=== PATIENT | male | born 1950 | race Caucasian/White ===

== ENCOUNTER 2023-10-17 20:24 | Observation (INO) | payer MEDICARE, SELFPAY ==
[2023-10-17] VITALS (10 sets, daily range): BP systolic 125–165; BP diastolic 80–119; PULSE 111–158; RESP 12–17; TEMP 36.4–36.6; O2SAT 93–97
--- NOTE | ~2023-10-17 | XR_ITS ---
EXAMINATION: XR chest 1V portable Exam Date/Time: 10/17/2023 20:50 CDT HISTORY: covid, afib Comparison: 07/20/2010. RESULT: Lines, tubes, and devices: None. Lungs and pleura: Mild biapical pleural scarring, otherwise clear. Cardiomediastinal silhouette: Stable. Other: No acute osseous or upper abdominal finding. IMPRESSION: No acute cardiopulmonary process. Reviewed, dictated and finalized at location K.
--- NOTE | ~2023-10-17 | CT_ITS ---
EXAMINATION: CTA chest PE protocol DATE: 10/17/2023 21:52 INDICATION: new onset afib, covid TECHNIQUE: Computed tomography angiography (CTA) of the chest was performed with 100 mL Omnipaque-350 intravenous contrast timed to evaluate the pulmonary arteries. Coronal maximum intensity projection 3D-reconstructions were created by the technologist. The dose-length product (DLP) was 293.81 mGy-cm. Automated exposure control and iterative reconstruction technique were employed. COMPARISON: X-ray chest same date. FINDINGS: Lung parenchyma and airways: Senescent change. Bibasilar scarring. Calcified granulomas. Biapical ple ural scarring. Pleura: Unremarkable. Thoracic inlet, axillae and chest wall: Unremarkable. Thoracic aorta: No significant dilation. No dissection. Mediastinum: Normal. Heart and pericardium: Normal. Coronary artery calcifications: Mild. Upper abdomen: No significant finding. Bones: No acute osseous finding. Pulmonary arteries: Study quality: Adequate. No pulmonary emboli detected. IMPRESSION: No CT evidence of acute pulmonary embolus. No acute process detected in the chest. Reviewed, dictated and finalized at location K.
--- NOTE | 2023-10-17 20:30 | ECG_ITS ---
Test Date: 2023-10-17 20:32:07 Measurements Intervals [place] Rate: 150 P: 0 MO: 0 QRS: 69 QRSD: 91 T: 51 QT: 286 QTc: 452 Interpretive Statements ATRIAL FLUTTER/TACHYCARDIA WITH RAPID VENTRICULAR RESPONSE ST DEPRESSION IN ANTROLAT/INF LEADS, CONSIDER SUBENDOCARDIAL INJURY ABNORMAL ECG No previous ECG available for comparison Electronically Signed On 10-18-2023 06:20:29 CDT by Asad Faria D.O.
--- NOTE | 2023-10-17 20:43 | ED.ARRPALP ---
HPI - Arrhythmia/Palpitations General Chief Complaint: Arrhythmia/Palpitations Stated Complaint: COVID+ NOW IN AFIB Time Seen by Provider: 10/17/23 20:32 History of Present Illness HPI narrative: This is a 73-year-old male with no pertinent past medical history aside from hyperlipidemia who presents to the emergency department in AFib with rapid ventricular response. Patient went to Urgent Care today to get a COVID test as he was flying to [place] tomorrow to visit family. He has been having flu-like symptoms for last week including nausea, vomiting, diarrhea, congestion. He has no history of atrial fibrillation. Never been on blood thinner medications and has no history of DVT or PE. Aside from the COVID diagnosis he was otherwise in his normal state of health. No medication changes. He has not any cardiac medications like beta-blockers or calcium channel blockers. No leg swelling. No long travel, recent procedures. Related Data Allergies Allergy/AdvReac Type Severity Reaction Status Date / Time No Known Allergies Allergy Unverified 07/20/10 13:44 Review of Systems Review of Systems: As reviewed above in HPI Exam Narrative: GENERAL: [Well-appearing, well-nourished, and in no acute distress.] HEAD: [Normocephalic, atraumatic.] EYES: [PERRLA and EOMI.] ENT: Nares clear, no rhinorrhea or epistaxis. Mucous membranes moist. NECK: Supple. CHEST: [Clear to auscultation. No respiratory distress.] HEART: Rapid irregular heart rate but good well-perfused extremities. No murmur heard. [Normal peripheral pulses.] ABDOMEN: [Soft, nondistended], [nontender], [No rigidity or guarding] EXTREMITIES: Normal range of motion. [No edema.] SKIN: Warm, dry, no rash. NEURO: [No focal deficits]. Alert and oriented [x3.] PSYCH: [Normal mood and affect.] Course Vital Signs Vital signs: Vital Signs Temperature 36.6 C 10/17/23 20:27 Pulse Rate 156 H 10/17/23 20:27 Respiratory Rate 16 10/17/23 20:27 Blood Pressure 158/115 H 10/17/23 20:27 Pulse Oximetry 97 10/17/23 20:27 Oxygen Delivery Room Air 10/17/23 20:27 Temperature 36.4 C 10/17/23 20:43 Pulse Rate 125 H 10/17/23 22:20 Respiratory Rate 16 10/17/23 20:43 Blood Pressure 138/103 H 10/17/23 22:20 Pulse Oximetry 96 10/17/23 20:44 Oxygen Delivery Room Air 10/17/23 20:44 MDM - Arrhythmia/Palpitations MDM Narrative Medical decision making narrative: This is a 73-year-old male presenting for atrial fibrillation with rapid ventricular response. He was recently diagnosis COVID after a week of URI symptoms. He has also been having nauseous, diarrhea in addition. Presently he is asymptomatic and does not even feel his rapid heartbeat but was sent from urgent care after this covered his rapid heart rate with in the 150s and irregular beat. No DVT or PE history. Legs are not edematous with no calf swelling. Warm extremities bilaterally with AFib on pulsation. Hemodynamically stable with a blood pressure 160/116. He is afebrile and saturating well on room air. Differential diagnosis at this time includes new onset atrial fibrillation, thrombotic process such as a pulmonary embolism, COVID 19 infection, ACS is less likely. Triage EKG confirmed atrial fibrillation, RVR with a heart rate in 150s. There appeared to be some ST depressions in the very lateral leads although this is likely rate dependent. No ST elevation NH. IV access is obtained, patient placed on continuous pulse oximetry and nuclear monitoring technician. CBC BMP troponin serially, chest x-ray and CTA with PE protocol was ordered. She was given 20 mg of Cardizem for 0.25 milligram/kilogram dose. 1 L likely Ringer bolus was given. Patient has good rate control down in the 90-100s however quickly rebounded back into rapid ventricular response. He was started on a Cardizem drip with titration parameters to keep him under 110 beats per minute. Hemodynamically remained stable. Serial troponin
[2023-10-17] MEDS: dilTIAZem HCl INJ 25 MG/5 ML VIAL 20 MG IV PUSH (20:56)
[2023-10-17] MEDS: LACTATED RINGERS 1,000 ML 999 ML IV CONT (20:58)
[2023-10-17 21:01] LABS: Basophils Percent Auto 0.6 % (0.2-1.2); Eosinophils Absolute Auto 0.1 K/mm3 (0-0.3); Eosinophils Percent Auto 1.2 % (0-4.4); Hematocrit 46.6 % (42.0-52.0); Hemoglobin 15.8 g/dL (14.0-18.0); Immature Granulocyte Absolute 0.01 K/mm3 (0.00-0.031); Immature Granulocyte Percent A 0.1 % (0-0.5); Lymphocytes Absolute Auto 2.49 K/mm3 (0.9-3.2); Lymphocytes Percent Auto 36.1 % (18.3-44.2); Mean Corpuscular HGB Conc 33.9 g/dl (32-36); Mean Corpuscular Hemoglobin 31.7 pg (26-34); Mean Corpuscular Volume 93.4 fl (80-100); Mean Platelet Volume 9.7 fl (7.4-10.4); Monocytes Absolute Auto 0.8 K/mm3 (0.1-0.6); Monocytes Percent Auto 11.2 % (2.6-8.5); Neutrophils Absolute Auto 3.5 K/mm3 (1.3-6.7); Neutrophils Percent Auto 50.8 % (45.5-73.1); Platelet Count Result 250 k/mm3 (150-375); Red Blood Count 4.99 M/mm3 (4.6-6.20); Red Cell Distribution Width 12.3 % (11.5-14.5); White Blood Count 6.9 K/mm3 (4.5-10.0)
[2023-10-17 21:15] LABS: Prothrombin Time 13.2 Seconds (11.1-14.7)
[2023-10-17 21:16] LABS: Partial Thromboplastin Time 24.9 Seconds (22.3-36.8)
[2023-10-17 21:26] LABS: Alanine Aminotransferase 50 U/L (6-50); Albumin Level 4.7 g/dL (3.5-5.1); Alkaline Phosphatase 63 U/L (38-126); Anion Gap 11 mmol/L (4-12); Aspartate Amino Transferase 49 U/L (17-59); Bilirubin,Total 1.1 mg/dL (0.2-1.3); Blood Urea Nitrogen 18 mg/dL (9-20); Calcium 9.7 mg/dL (8.4-10.2); Carbon Dioxide 29 mmol/L (22-30); Chloride 102 mmol/L (98-107); Estimated CRCL calculation 66 ml/min; Estimated Glomerular Filt Rate > 60; Glucose 93 mg/dL (65-110); Potassium 3.8 mmol/L (3.4-5.0); Sodium 142 mmol/L (137-145)
[2023-10-17 21:46] LABS: NT Pro B Type Natriuretic Pept 87 pg/mL (19.9-100); Troponin I < 0.012 ng/mL (0.000-0.034)
--- NOTE | 2023-10-17 22:07 | PC.NURSE ---
Patient states that he tested positive for COVID at before coming to ED.
[2023-10-17] MEDS: dilTIAZem 100 MG/100 ML 100 MG/100 ML BAG IV CONT (22:20)
--- NOTE | 2023-10-17 22:29 | PM.IMHP ---
H&P: HPI History of Present Illness Date/Time: 10/17/23 22:29 Chief Complaint: abnormal heart rate Narrative: this is a 73-year-old male with no significant past medical history patient presents to the emergency room due to abnormal heart rate in the 100 and 50s patient had been in to check for COVID after having several days not feeling well having cold-like symptoms generalized malaise dry heaving diarrhea and he was found to have a heart rate in the 150 in the emergency room preliminary workup was significant for EKG with atrial fibrillation. Patient was started on diltiazem drip. Patient tested positive for COVID. EXAMINATION: XR chest 1V portable Exam Date/Time: 10/17/2023 20:50 CDT HISTORY: covid, afib Comparison: 07/20/2010. RESULT: Lines, tubes, and devices: None. Lungs and pleura: Mild biapical pleural scarring, otherwise clear. Cardiomediastinal silhouette: Stable. Other: No acute osseous or upper abdominal finding. IMPRESSION: No acute cardiopulmonary process. EXAMINATION: CTA chest PE protocol DATE: 10/17/2023 21:52 INDICATION: new onset afib, covid TECHNIQUE: Computed tomography angiography (CTA) of the chest was performed with 100 mL Omnipaque-350 intravenous contrast timed to evaluate the pulmonary arteries. Coronal maximum intensity projection 3D-reconstructions were created by the technologist. The dose-length product (DLP) was 293.81 mGy-cm. Automated exposure control and iterative reconstruction technique were employed. COMPARISON: X-ray chest same date. FINDINGS: Lung parenchyma and airways: Senescent change. Bibasilar scarring. Calcified granulomas. Biapical pleural scarring. Pleura: Unremarkable. Thoracic inlet, axillae and chest wall: Unremarkable. Thoracic aorta: No significant dilation. No dissection. Mediastinum: Normal. Heart and pericardium: Normal. Coronary artery calcifications: Mild. Upper abdomen: No significant finding. Bones: No acute osseous finding. Pulmonary arteries: Study quality: Adequate. No pulmonary emboli detected. IMPRESSION: No CT evidence of acute pulmonary embolus. No acute process detected in the chest. Review of Systems Review of Systems: Cold-like symptoms, dry heaving, diarrhea, generalized malaise abnormal heart rate [facility] Family History Family History Father Acute myocardial infarction Mother Acute myocardial infarction Pacemaker Afib Social History Social History Smoking status: Never smoker Alcohol intake: former Substance use: never Substance use type: does not use Do You Feel Safe in your Home?: Yes Lack of Transportation: No Lack of Food: Never True Current Housing: I Have Housing Concerned About Future Housing: No Difficulty Paying Gas/Electric Bills: No Difficulty Paying for Meds: No Currently Unemployed: No Education: Master's Degree or Higher Difficulty w/ Childcare or Family Care: No Spiritual care concerns: No Meds Home Medications and Allergies Home Medications Medication Instructions Recorded Confirmed Type aspirin 81 mg tablet 81 mg PO DAILY 10/17/23 10/17/23 History rosuvastatin 20 mg tablet 20 mg PO DAILY 10/17/23 10/17/23 History metoprolol succinate 25 mg 25 mg PO QAM #30 tabs 10/18/23 Rx tablet,extended release 24 hr (Toprol XL) Allergies Allergy/AdvReac Type Severity Reaction Status Date / Time No Known Allergies Allergy Verified 10/17/23 23:26 Vital Signs Vital Signs - 24 hr 10/17/23 20:27 10/17/23 20:41 10/17/23 20:43 Temperature 98 F 97.6 F Pulse Rate 156 H 158 H 158 H Respiratory Rate 16 16 Blood Pressure 158/115 H 165/116 H Pulse Oximetry 97 93 Oxygen Delivery Room Air 10/17/23 20:44 10/17/23 21:58 10/17/23 22:20 Temperature Pulse Rate 111 H 125 H Respiratory
[2023-10-18] VITALS (19 sets, daily range): BP systolic 120–147; BP diastolic 69–83; PULSE 57–138; RESP 12–20; TEMP 36–36.6; O2SAT 93–100
--- NOTE | 2023-10-18 | ECHO_ITS ---
Patient Info Name: Johnny Corral Age: 73 years : 1950 Gender: Male Ht: 72 in Wt: 167 lbs BSA: 1.96 m2 HR: 69 bpm BP: 121 / 83 mmHg Heart Rhythm: Sinus Rhythm Technical Quality: Fair Exam Date: 10/18/2023 2:08 PM Exam Location: Echo Lab Patient Status: Outpatient Admit Date: 10/17/2023 Staff Ordering Physician: Chaparrita Damico MD Sustainability Coordinator: Cristy Olvera [facility] Attending Provider: Chaparrita Damico MD Referring Physician: Mookie GAGE; Exam Type: CA echo doppler color flow Study Info Indications I48.1 - Persistent atrial fibrillation Complete two-dimensional, color flow and Doppler transthoracic echocardiogram is performed. Summary 1. Complete two-dimensional, color flow and Doppler transthoracic echocardiogram is performed. 2. Left ventricular chamber dimension is normal. 3. Left ventricular systolic function is normal, estimated at 60-65%. 4. Right ventricular systolic function is normal. 5. No significant valvular disease. Left Ventricle Left ventricular chamber dimension is normal. Left ventricular systolic function is normal, estimated at 60-65%. There is no increased left ventricular wall thickness. The left ventricular diastolic function is normal. Right Ventricle Right ventricular chamber dimension is normal. Right ventricular systolic function is normal. Left Atria Left atrial chamber dimension is normal. Right Atria Right atrial chamber dimension is normal. Atrial Septum Intact interatrial septum visualized by color flow imaging. Aortic Valve The aortic valve is trileaflet. There is no aortic valve stenosis. There is no aortic valve regurgitation. Pulmonic Valve The pulmonic valve is not well visualized. There is no pulmonic regurgitation. Mitral Valve There is trace mitral valve regurgitation. The mitral valve annulus is moderately calcified. Tricuspid Valve There is trace tricuspid valve regurgitation. Pericardium/Pleural There is no pericardial effusion. Inferior Vena Cava Normal inferior vena cava with >50% collapse upon inspiration consistent with normal right atrial pressure, 3 mmHg. Aorta The aortic root size at the sinus of Valsalva is normal. Left Ventricular Outflow Tract Name Value Normal LVOT 2D LVOT Diameter 2.1 cm LVOT Doppler LVOT Peak Gradient 3 mmHg LVOT Mean Gradient 1 mmHg LVOT VTI 15 cm LVOT VTI/AV VTI Ratio 0.9 LVOT Stroke Volume 52 ml LVOT CO 3.4 l/min LVOT CI 1.7 l/min/m2 Pulmonic Valve Name Value Normal PV Doppler PV Peak Gradient 2 mmHg Mitral Valve Name Value Normal
[2023-10-18 00:12] LABS: Troponin I < 0.012 ng/mL (0.000-0.034)
--- NOTE | 2023-10-18 00:29 | ADMGEN ---
This patient, Johnny Corral, was admitted to IMU Room 212-01. Patient/family oriented to hospital policies and general routines including ID bracelet, bed and alarms, visiting hours, pain management, procedures, bathroom and other care routines, personal items, smoking policy, room service/diet, and visiting hours. Information on how to activate the Rapid Response Team has been discussed. Patient/Family are encouraged to report perceived risks to care and to ask questions if they do not understand what they are told or what they should do.
--- NOTE | 2023-10-18 00:30 | ADMGEN ---
This patient, Johnny Corral, was admitted to IMU Room 212-01 10/17 2339. Patient/family oriented to hospital policies and general routines including ID bracelet, bed and alarms, visiting hours, pain management, procedures, bathroom and other care routines, personal items, smoking policy, room service/diet, and visiting hours. Information on how to activate the Rapid Response Team has been discussed. Patient/Family are encouraged to report perceived risks to care and to ask questions if they do not understand what they are told or what they should do.
[2023-10-18 02:19] LABS: Troponin I < 0.012 ng/mL (0.000-0.034)
[2023-10-18] MEDS: ASPIRIN 81 MG ENTERIC TABLET PO (08:29)
--- NOTE | 2023-10-18 08:35 | PM.IMPN ---
Progress Note: A&P Assessment and Plan (1) Atrial fibrillation: Code(s): I48.91 - Unspecified atrial fibrillation Status: Acute (2) Palpitations: Code(s): R00.2 - Palpitations Status: Acute (3) COVID-19: Code(s): U07.1 - COVID-19 Status: Acute Plan This is a 73-year-old male with no pertinent past medical history aside from hyperlipidemia who presents to the emergency department in [facility] with rapid ventricular response. Patient went to Urgent Care today to get a COVID test as he was flying to [place] tomorrow to visit family. He has been having flu-like symptoms for last week including nausea, vomiting, diarrhea, congestion. He has no history of atrial fibrillation. Never been on blood thinner medications and has no history of DVT or PE. Aside from the COVID diagnosis he was otherwise in his normal state of health. No medication changes. He has not any cardiac medications like beta-blockers or calcium channel blockers. No leg swelling. No long travel, recent procedures. Patient was noted to be tachycardic in 150s at the urgent care. Otherwise hemodynamically stable. She was sent to ED for evaluation. Trial EKG showed atrial fibrillation with rapid ventricular rate with heart rate in 150s. She was given 20 mg of Cardizem followed by Cardizem drip. She also received IV fluid resuscitation. Her heart rate was controlled on Cardizem drip. Cardizem drip has been discontinued since then As he converted back to sinus rhythm at 445 a.m. this a.m.. Echo ordered. Cardiology has been consulted. Serial troponins were negative. CT PE protocol showed no PE. Chads Vasc score only 1. Laboratory evaluation showed normal WBC of 6.9 hemoglobin of 15.8 came panel was unremarkable. He also tested positive for COVID. mild respiratory symptoms no hypoxia noted. Continue supportive care DVT prophylaxis Lovenox Code status full code Subjective Date/time seen: 10/18/23 08:35 Review of Systems Review of Systems: All systems reviewed & are unremarkable except as noted in HPI and below Objective Data Vital Signs Vital Signs: Vital Signs - 24 hr 10/17/23 20:27 10/17/23 20:41 10/17/23 20:43 Temperature 98 F 97.6 F Pulse Rate 156 H 158 H 158 H Respiratory Rate 16 16 Blood Pressure 158/115 H 165/116 H Pulse Oximetry 97 93 Oxygen Delivery Room Air Fraction of Inspired Oxygen 10/17/23 20:44 10/17/23 21:58 10/17/23 22:20 Temperature Pulse Rate 111 H 125 H Respiratory Rate Blood Pressure 152/113 H 138/103 H Pulse Oximetry 96 Oxygen Delivery Room Air Fraction of Inspired Oxygen 10/17/23 22:51 10/17/23 22:00 10/17/23 23:21 Temperature 97.6 F Pulse Rate 151 H 114 H 140 H Respiratory Rate 17 Blood Pressure 125/80 130/108 H 147/119 H Pulse Oximetry 95 Oxygen Delivery Fraction of Inspired Oxygen 10/17/23 23:24 10/18/23 00:04 10/18/23 00:00 Temperature 97.6 F 97.6 F Pulse Rate 114 H 95 138 H Respiratory Rate 12 12 Blood Pressure 147/119 H 147/69 H 147/69 H Pulse Oximetry 94 100 Oxygen Delivery Fraction of Inspired Oxygen 10/18/23 00:00 10/18/23 00:00 10/18/23 01:31 Temperature Pulse Rate 138 H 91 Respiratory Rate 12 Blood Pressure 136/78 Pulse Oximetry 100 93 Oxygen Delivery Room Air Fraction of Inspired Oxygen 10/18/23 02:00 10/18/23 02:00 10/18/23 03:54 Temperature 97.6 F Pulse Rate 92 97 73 Respiratory Rate 12 Blood Pressure 136/78 124/82 Pulse Oximetry 95 Oxygen Delivery Fraction of Inspired Oxygen 10/18/23 04:00 10/18/23 04:00 10/18/23 04:50 Temperature Pulse Rate 57 L 57 L 62 Respiratory Rate Blood Pressure 124/82 120/78 Pulse Oximetry Oxygen Delivery Fraction of Inspired Oxygen 10/18/23 04:00 10/18/23 06:18 10/18/23 06:00 Temperature 97.8 F Pulse Rate 67 64 Respiratory Rate 12 Blood Pressure 128/74 Pulse Oximetry 98 Oxygen Delivery Room Air
--- NOTE | 2023-10-18 10:36 | PM.CNCAR ---
Assessment and Plan Assessment and plan (1) Atrial fibrillation: Code(s): I48.91 - Unspecified atrial fibrillation Status: Acute Assessment and Plan: New diagnosis of atrial fibrillation with RVR in the setting of COVID infection. He spontaneously converted to sinus rhythm last night on diltiazem. I discussed the diagnosis of atrial fibrillation including pathophysiology, management strategies, and risk for stroke. As he has already converted to sinus rhythm, will place him on low dose ToprolXL for maintenance of sinus rhythm. He has a [id number] score of 1, so anticoagulation is not indicated in this situation. He is on ASA 81mg daily, but as he has no known cardiovascular disease, I do not think this is indicated. Will check an echocardiogram - if unremarkable he can be discharged today and plans to follow up with his established automotive drivability technician. History of Present Illness History of Present Illness Consult date/time: 10/18/23 10:36 Requesting physician: Bill Miner MD Consult reason: atrial fibrillation Reason For Visit: Atrial fibrillation with rapid ventricular respons Narrative: This is a 73 year old male with no medical problems who is admitted for atrial fibrillation with rapid ventricular response. He went to urgent care yesterday due to feeling some cold symptoms and to get tested for COVID. He was sent to the emergency department from the urgent care because of tachycardia and was found to be in atrial fibrillation with RVR. He is also positive for COVID. He has no history of arrhythmias or any cardiac problems. He does see a automotive drivability technician in [place] because of a family history of coronary artery disease but he has undergone two stress tests that have reportedly been negative. He spontaneously converted to sinus rhythm overnight and remains in sinus rhythm now. He is asymptomatic and has no complaints. Review of Systems Review of Systems: All systems reviewed & are unremarkable except as noted in HPI and below PMFSH Family History Family History Father Acute myocardial infarction Mother Acute myocardial infarction Pacemaker Afib Social History Social History Smoking status: Never smoker Alcohol intake: former Substance use: never Substance use type: does not use Do You Feel Safe in your Home?: Yes Lack of Transportation: No Lack of Food: Never True Current Housing: I Have Housing Concerned About Future Housing: No Difficulty Paying Gas/Electric Bills: No Difficulty Paying for Meds: No Currently Unemployed: No Education: Master's Degree or Higher Difficulty w/ Childcare or Family Care: No Spiritual care concerns: No Meds Home Medications and Allergies Home Medications Medication Instructions Recorded Confirmed Type aspirin 81 mg tablet 81 mg PO DAILY 10/17/23 10/17/23 History rosuvastatin 20 mg tablet 20 mg PO DAILY 10/17/23 10/17/23 History Allergies Allergy/AdvReac Type Severity Reaction Status Date / Time No Known Allergies Allergy Verified 10/17/23 23:26 Vital Signs Vital Signs - 24 hr 10/17/23 20:27 10/17/23 20:41 10/17/23 20:43 Temperature 36.6 C 36.4 C Pulse Rate 156 H 158 H 158 H Respiratory Rate 16 16 Blood Pressure 158/115 H 165/116 H Pulse Oximetry 97 93 Oxygen Delivery Room Air Fraction of Inspired Oxygen 10/17/23 20:44 10/17/23 21:58 10/17/23 22:20 Temperature Pulse Rate 111 H 125 H Respiratory Rate Blood Pressure 152/113 H 138/103 H Pulse Oximetry 96 Oxygen Delivery Room Air Fraction of Inspired Oxygen 10/17/23 22:51 10/17/23 22:00 10/17/23 23:21 Temperature 36.4 C Pulse Rate 151 H 114 H 140 H Respiratory Rate 17 Blood Pressure 125/80 130/108 H 147/119 H Pulse Oximetry 95 Oxygen Delivery Fraction of Inspired Oxygen 10/17/23 23:24
--- NOTE | 2023-10-18 11:48 | PM.DS ---
DS: Admitting Diagnosis Discharge Date 10/18/2023 Admitting Diagnosis Tachycardia DS: Discharge Diagnosis Discharge Diagnosis (1) Atrial fibrillation: Code(s): I48.91 - Unspecified atrial fibrillation Status: Acute (2) Palpitations: Code(s): R00.2 - Palpitations Status: Acute (3) COVID-19: Code(s): U07.1 - COVID-19 Status: Acute DS: Summary Hospital Course Hospital Course: This is a 73-year-old male with no pertinent past medical history aside from hyperlipidemia who presents to the emergency department in [facility] with rapid ventricular response. Patient went to Urgent Care today to get a COVID test as he was flying to [place] tomorrow to visit family. He has been having flu-like symptoms for last week including nausea, vomiting, diarrhea, congestion. He has no history of atrial fibrillation. Never been on blood thinner medications and has no history of DVT or PE. Aside from the COVID diagnosis he was otherwise in his normal state of health. No medication changes. He has not any cardiac medications like beta-blockers or calcium channel blockers. No leg swelling. No long travel, recent procedures. Patient was noted to be tachycardic in 150s at the urgent care. Otherwise hemodynamically stable. She was sent to ED for evaluation. Trial EKG showed atrial fibrillation with rapid ventricular rate with heart rate in 150s. She was given 20 mg of Cardizem followed by Cardizem drip. She also received IV fluid resuscitation. Her heart rate was controlled on Cardizem drip. Cardizem drip has been discontinued since then As he converted back to sinus rhythm at 445 a.m. this a.m.. Echo ordered which was performed however read is pending.. Cardiology has been consulted. Serial troponins were negative. CT PE protocol showed no PE. Chads Vasc score only 1. Due to AFib has been started on metoprolol. Your follow-up with a escrow processor as outpatient basis. Cardiology team will review the echocardiogram in a.m. and will convey the results to the patient. Laboratory evaluation showed normal WBC of 6.9 hemoglobin of 15.8 came panel was unremarkable. He also tested positive for COVID. mild respiratory symptoms no hypoxia noted. Continue supportive care DVT prophylaxis Lovenox Code status full code Time Spent with Patient Time attestation: Total time spent providing and/or coordinating discharge services: 35 minutes Exam Narrative: GENERAL: The patient is well developed, not in acute distress HEENT: Nonicteric sclerae, PERRLA, EOMI. Oropharynx clear. Moist mucous membranes. Conjunctivae appear well perfused. CHEST: Chest wall is nontender. HEART: Regular rate and rhythm without murmur, rubs, or gallops LUNGS: Clear to auscultation bilaterally. no respiratory distress ABDOMEN: Soft, positive bowel sounds, non-tender, no organomegaly. SKIN: No rash, no excessive bruising, petechiae, or purpura. NEUROLOGIC: Cranial nerves II-XII intact, alert and oriented x 3, no gross motor deficits EXTREMITIES: no edema, cyanosis or clubbing DS: Data Data Completed and Pending Labs on day of discharge: Labs from last 24 hours 10/18/23 10/17/23 10/17/23 01:42 23:43 20:46 WBC 6.9 RBC 4.99 Hgb 15.8 Hct 46.6 MCV 93.4 MCH 31.7 MCHC 33.9 RDW 12.3 Plt Count 250 MPV 9.7 Immature Gran % (Auto) 0.1 Neut % (Auto) 50.8 Lymph % (Auto) 36.1 Atlantic % (Auto) 11.2 H Eos % (Auto) 1.2 Baso % (Auto) 0.6 Lymph # (Auto) 2.49 Atlantic # (Auto) 0.8 H Eos # (Auto) 0.1 Baso # (Auto) 0.0 Abs Immat Gran (auto) 0.01 Absolute Neuts (auto) 3.5 Absolute Nucleated RBC 0.000 Nucleated RBC % 0.0 PT 13.2 INR 1.0 APTT 24.9 Sodium 142 Potassium 3.8 Chloride 102 Carbon Dioxide 29 Anion Gap 11 BUN 18 Creatinine 1.00 Estim Creat Clear Calc 66 Estimated GFR > 60 Glucose 93 Calcium 9.7 Total Bilirubin 1.1 AST 49
[2023-10-18] MEDS: METOPROLOL SUCCINATE EXT REL 25 MG TABCR PO (13:51)
== END 2023-10-18 16:57 | disposition home or self-care (01) ==
LOC: ANHED 22:33 → ANHIMU 23:26
PROVIDERS: Admitting Provider Internal Medicine; Emergency Provider Student in an Organized Health Care Education/Training Program; Visit Provider Internal Medicine
DX: I48.91 Unspecified atrial fibrillation (principal); U07.1 COVID-19; R00.2 Palpitations; Z79.82 Long term (current) use of aspirin
CPT/HCPCS: 36415; 71045; 71275; 80053; 83880; 84484; 85025; 85610; 85730; 93005; 93306; 96365; 96366; 96376; 99285; A9270; G0378; J7120; Q9967